=== PATIENT | female | born 1985 | race African-American/Black ===

== ENCOUNTER 2020-09-26 11:06 | Emergency (ER) | payer OTHER ==
[~2020-09-26] VITALS: Ht 162.6 cm; Wt 85.3 kg
[2020-09-26 11:23] VITALS: BP 110/67
[2020-09-26] MEDS ORDERED: CEPHALEXIN500 MG ORAL (11:25)
--- NOTE | 2020-09-26 11:28 | Emergency Room Report ---
History of Present Illness General Chief Complaint: Wound Recheck/Suture Removal Source: Patient Present Illness HPI Disclaimer: Please note that this report is being documented using [employer] technology. This can lead to erroneous entry secondary to incorrect interpretation by the dictating instrument. HPI: 35-year-old female presents for wound check. The patient had a tummy tuck procedure in [place] 3 weeks ago. Has been healing well and doing fine postoperatively. Today she was cleaning her wounds with peroxide and noted some yellowish liquid on the the Q-tip as she was cleaning the scars. She had removed accidentally one of the overlying scabs. No active bleeding. No active drainage. Otherwise afebrile eating and drinking at baseline, no other complaints. 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 EOMI. Resp: Normal work of breathing Skin: Intact. Surgical scar across the lower pelvis is clean dry and intact. Multiple areas of scabs appear dry, no active bleeding. No evidence of deep space infection. Mild erythema along the surgical line but overall appears to be healing well. No fluctuant masses. No wound dehiscence. MSK: Normal tone and bulk. Moving all extremities. No obvious deformity. Neuro: Awake and alert. Mentating appropriately Medical Decision Making Diagnostic Impression: Primary Impression: Encounter for postoperative wound check ER Course Is a 35-year-old female recently underwent tummy tuck procedure in [place] presenting for wound evaluation. Overall the wheel appears intact and healing. There is a small area of yellow material but no active drainage along the midline. Unclear whether or not this is an infection versus granulation tissue but will start on Keflex as a precaution. Do not believe she requires emergent labs or imaging today. She is otherwise well-appearing stable for outpatient fo llow-up. Advised her to check in with her surgeon to discuss reevaluation. She understands and agrees with the treatment plan. Last Vital Signs Date Time Temp Pulse Resp B/P (MAP) Pulse Ox O2 Delivery O2 Flow Rate FiO2 09/26/20 11:23 98.4 18 110/67 97 Room Air 09/26/20 11:10 105 Disposition: HOME, SELF-CARE Condition: Stable Scripts Cephalexin* (KEFLEX*) 500 Mg Capsule 500 MG ORAL EVERY 12 HOURS for 7 Days, #14 CAP 0 Refills Prov: Angelo Moreland MD 09/26/20 Referrals: [facility] Patient Instructions: Wound Check Additional Instructions: Please follow-up with your surgeon in the next 1 to 3 days to discuss this emergency department visit and for reevaluation. If you have any new or worsening symptoms please return to the emergency department for reevaluation. Please note that this report is being documented using [employer] technology. This can lead to erroneous entry secondary to incorrect interpretation by the dictating instrument. Angelo Moreland MD Sep 26, 2020 11:28
[2020-09-26 11:31] VITALS: BP 112/70
== END 2020-09-26 11:40 | disposition home or self-care (01) ==
LOC: EMR 11:40
DX: Z48.01 Encounter for change or removal of surgical wound dressing (principal)
CPT/HCPCS: 99282